=== PATIENT | female | born 1995 | race Two or more races ===

== ENCOUNTER 2024-07-29 02:26 | Inpatient (IN) ==
[2024-07-29] MEDS: Nalbuphine 10 MG/ML 1 ML VIAL IM ONE (08:02)
[2024-07-29 14:03] LABS: ABS Basophils 0.1 10^3/uL (0.0-0.1); ABS Eosinophils 0.2 10^3/uL (0.0-0.5); ABS Lymphocytes 2.9 10^3/uL (1.0-4.8); ABS Monocytes 0.4 10^3/uL (0.0-0.9); ABS Neutrophils 5.5 10^3/uL (1.5-7.6); ABS Nucleated RBC 0.01 10^3/ul; Hematocrit 37.1 % (35-45); Hemoglobin 12.4 g/dL (11.5-14.3); Lymphocyte % 32.1 %; Mean Corpuscular Hemoglobin 28.7 pg (27-33); Mean Corpuscular Hgb Conc 33.4 g/dL (31-36); Mean Platelet Volume 8.8 fL (7.5-11.2); Nucleated Red Blood Cells % 0.1 %/100WBC (0.0-0.8); Platelet Count 256 10^3/uL (150-450); Red Blood Count 4.31 10^6/uL (3.63-4.92); Red Cell Distribution Width 14.1 % (12-17)
[2024-07-29] MEDS: Buffered Lidocaine 1% SYRIN 1 ml INTRADERM ONE (14:04)
[2024-07-29 14:38] LABS: Urine Benzodiazepine Screen None Detected (None Detect); Urine Cannabinoids Screen None Detected (None Detect); Urine Opiates Screen None Detected (None Detect)
[2024-07-29] MEDS: Oxytocin in LR 20,000 MILLI.UNIT/1,000 ML BAG IV SCH (15:33)
[2024-07-29] MEDS: Lactated Ringers 1000 ml BAG 1,000 ML IV SCH (15:34)
[2024-07-29] MEDS ORDERED: Phenylephrine 40 mcg/mL 10mL (400mcg) SYRINGE IV PUSH PRN ×2 (23:55)
[2024-07-29] MEDS ORDERED: Sodium Citrate/Citric Acid LIQ 15 ML UDC PO PRN (23:55)
[2024-07-30] MEDS: OBEPIDURAL (200 ML) 200 ML EPIDURAL SCH (00:04)
[2024-07-30] MEDS: Lactated Ringers 1000 ml BAG 1,000 ML IV SCH (00:05)
[2024-07-30 01:16] LABS: Urine Appearance Clear; Urine Bilirubin Negative (Negative); Urine Blood Trace (Negative); Urine Color Yellow; Urine Glucose Negative (Negative); Urine Ketones 1+ (Negative); Urine Nitrite Negative (Negative); Urine Protein Trace (Negative); Urine Specific Gravity 1.022 (1.002-1.030); Urine Urobilinogen Negative (Negative); Urine pH 6.5 (5.0-8.0)
[2024-07-30 01:34] LABS: Urine Bacteria Absent /HPF (Absent); Urine Red Blood Cell 3+(>10/hpf) /HPF (0-Trace); Urine White Blood Cell Trace(0-5/hpf) /HPF (0-Trace)
[2024-07-30] MEDS: Lidocaine 1% VIAL 10 MG/ML 30 ML VIAL INJ PRN (04:55)
[2024-07-30] MEDS ORDERED: Glycerin ADULT 2.4 gm SUPP PR PRN (05:06)
[2024-07-30] MEDS ORDERED: Lactated Ringers 1000 ml BAG 1,000 ML IV SCH (06:00)
[2024-07-30] MEDS: Dibucaine 1% OINT 28.35 GM TUBE PR PRN (07:00)
[2024-07-30] MEDS: Witch Hazel PAD JAR TOPICAL PRN (07:00)
[2024-07-30] MEDS: Phenylephrine 40 mcg/mL 10mL (400mcg) SYRINGE ONE (12:48)
[2024-07-30] MEDS: OBEPIDURAL (200 ML) 200 ML EPIDURAL ONE (12:48)
[2024-07-30] MEDS: Lactated Ringers 1000 ml BAG 1,000 ML IV ONE ×2 (12:48)
[2024-07-30] MEDS: Lidocaine 1.5% EPI 1:200,000 30 ML SDV ONE (12:48)
[2024-07-30] MEDS: Oxytocin in LR 20,000 MILLI.UNIT/1,000 ML BAG IV SCH (12:49)
[2024-07-31 06:30] LABS: ABS Eosinophils 0.2 10^3/uL (0.0-0.5); ABS Lymphocytes 3.4 10^3/uL (1.0-4.8); ABS Monocytes 0.7 10^3/uL (0.0-0.9); ABS Neutrophils 6.3 10^3/uL (1.5-7.6); Eosinophil % 2.2 %; Hematocrit 25.8 % (35-45); Hemoglobin 8.7 g/dL (11.5-14.3); Lymphocyte % 32.1 %; Mean Corpuscular Hemoglobin 29.1 pg (27-33); Mean Corpuscular Hgb Conc 33.9 g/dL (31-36); Mean Corpuscular Volume 85.9 fL (80-97); Mean Platelet Volume 8.2 fL (7.5-11.2); Platelet Count 217 10^3/uL (150-450); Red Cell Distribution Width 13.9 % (12-17); White Blood Count 10.6 10^3/uL (3.8-11.8)
[2024-08-01 08:14] VITALS: BP 129/59
[2024-08-01 12:43] LABS: RPR Nonreactive (Nonreactive)
[2024-08-03 16:14] LABS: T.Pallidum TP-PA Negative (Negative)
== END 2024-08-01 13:01 | disposition home or self-care (01) | DRG 560 ==
LOC: MCHOBOUT 02:26 → MCHOB 12:39
PROVIDERS: ADMIT Midwife; ATTEND Midwife